=== PATIENT | female | born 1975 | race Caucasian/White ===

== ENCOUNTER 2017-01-27 18:36 | Emergency (ER) | payer BC ==
[2017-01-27 18:44] VITALS: BP 140/73; PULSE 93; RESP 16; TEMP 98.4; O2SAT 95
--- NOTE | 2017-01-27 20:02 | UCPHY ---
H & P Time Seen by Provider: 01/27/17 19:50 Patient Type: Established HPI/ROS: This patient complains of right ear pain of [id number] intensity associated with nasal congestion for the past several days. She feels the ear pain worsened slightly today which prompted her visit. She reports seasonal allergies associated with her symptoms. She she takes loratadine and Sudafed but has noticed an improvement. She notes no other exacerbating or alleviating factors. ROS: No fevers chills or other constitutional symptoms. HEENT: No purulent nasal discharge. She reports no significant hearing change. No drainage from the ear. No trauma to the ear. 5 point ROS is otherwise negative. Past Medical/Surgical History: Seasonal allergies Hypothyroidism Smoking Status: Never smoked Physical Exam: Physical Exam Vital signs are normal. General: No acute distress HEENT: Nose: Clear discharge bilaterally. No sinus tenderness to percussion. Ears: Right external canal is clear right TM reveals clear effusion. No erythema to the TM. Left external canal and TM are clear Oropharynx: No erythema or exudates. No dysphonia. No drooling or stridor. Eyes: Pupils equal and react to light. Extraocular motions are intact. Neck: Supple Lungs: Clear to auscultation bilaterally with no rales, rhonchi or wheeze. No respiratory distress. Cardiac: Regular rate and rhythm with no murmur gallop or rub Skin: No rash or pallor. Neuro: Alert with no focal deficits noted. Constitutional: Initial Vital Signs Temperature (C) 36.9 C 01/27/17 18:41 Heart Rate 93 01/27/17 18:41 Respiratory Rate 16 01/27/17 18:41 Blood Pressure 140/73 H 01/27/17 18:41 O2 Sat (%) 95 01/27/17 18:41 O2 Delivery Mode Room Air Allergies/Adverse Reactions: No Known Allergies Allergy (Unverified 01/10/15 21:50) Home Medications: Medication Instructions Recorded Albuterol [Proventil Inhaler HFA 01/10/15 (RX)] Loratadine/Pseudoephedrine 01/10/15 [Claritin-D 12 Hour Tablet] Thyroid,Pork [ARMOUR THYROID] 01/10/15 Fluticasone Nasal [Flonase Nasal 2 sprays NASAL DAILY #1 mdi 04/09/17 [place] (RX)] Medical Decision Making ED Course/Re-evaluation: Findings are consistent with seasonal allergies with serous otitis. I counseled the patient regarding this. Departure - Departure Disposition: Home, Routine, Self-Care Clinical Impression: Serous otitis media Qualifiers: Laterality: right Chronicity: acute Recurrence: not specified as recurrent Qualified Code(s): H65.01 - Acute serous otitis media, right ear Condition: Good Instructions: Serous Otitis Media (ED) Additional Instructions: Diagnosis: Serous otitis Plan: Humidifier Guaifenesin Flonase steroid nasal spray Afrin in addition if needed for couple days then stop the Afrin but continue Flonase for 10-14 days. Ibuprofen or Aleve anti-inflammatory in addition. Return for any significant worsening despite the treatment plan. Referrals: Lorenza Mane [Primary Care Provider] - As per Instructions Prescriptions: Fluticasone Nasal [Flonase Nasal [place] (RX)] 2 sprays NASAL DAILY #1 mdi - PQRS PQRS Measurement: NA
== END 2017-01-27 20:05 | disposition home or self-care (01) ==
LOC: CED 18:36
DX: H65.01 Acute serous otitis media, right ear (principal)
CPT/HCPCS: 99214-PO; G0463-PO

== ENCOUNTER → 2017-02-11 | Emergency (ER) | payer BC ==
[2017-02-11 20:06] VITALS: BP 153/76; PULSE 94; RESP 18; TEMP 100.2; O2SAT 98
--- NOTE | 2017-02-11 20:32 | UCPHY ---
H & P Patient Type: Established Chief Complaint Nursing Narrative: Cat scratched on nose. Time Seen by Provider: 02/11/17 20:22 HPI/ROS: CHIEF COMPLAINT: Cat scratch HISTORY OF PRESENT ILLNESS: Patient is a 41-year-old female who comes to the Urgent Care complaining of an abrasion to her nose. She states that her cat scratched her this afternoon. On her right nostril she has an abrasion on the margin medial and laterally. No bleeding. No through and through injury. She denies other injuries. No eye injury. REVIEW OF SYSTEMS: Constitutional: denies: chills, fever, recent illness, recent injury EENTM: See HPI Respiratory: denies: cough, shortness of breath Cardiac: denies: chest pain, irregular heart rate, lightheadedness, palpitations Gastrointestinal/Abdominal: denies: abdominal pain, diarrhea, nausea, vomiting, blood streaked stools Genitourinary: denies: dysuria, frequency, hematuria, pain Musculoskeletal: denies: joint pain, muscle pain Skin: denies: lesions, rash, jaundice, bruising Neurological: denies: headache, numbness, paresthesia, tingling, dizziness, weakness Hematologic/Lymphatic: denies: blood clots, easy bleeding, easy bruising Immunologic/allergic: denies: HIV/AIDS, transplant EXAM: GENERAL: Well-appearing, well-nourished and in no acute distress. HEAD: Atraumatic, normocephalic. EYES: Pupils equal round and reactive to light, extraocular movements intact, sclera anicteric, conjunctiva are normal. ENT: TMs normal, abrasion as described above , oropharynx clear without exudates. Moist mucous membranes. NECK: Normal range of motion, supple without lymphadenopathy or JVD. LUNGS: Breath sounds clear to auscultation bilaterally and equal. No wheezes rales or rhonchi. HEART: Regular rate and rhythm without murmurs, rubs or gallops. ABDOMEN: Soft, nontender, normoactive bowel sounds. No guarding, no rebound. No masses appreciated. BACK: No CVA tenderness, no spinal tenderness, step-offs or deformities EXTREMITIES: Normal range of motion, no pitting or edema. No clubbing or cyanosis. NEUROLOGICAL: Cranial nerves II through XII grossly intact. Normal speech, normal gait. 5/5 strength, normal movement in all extremities, normal sensation PSYCH: Normal mood, normal affect. SKIN: Warm, dry, normal turgor, no visible rashes or lesions. Source: Patient Exam Limitations: No limitations - Personal History LMP (Females 10-55): 8-14 Days Ago Current Tetanus/Diphtheria Vaccine: Yes Current Tetanus Diphtheria and Acellular Pertussis (TDAP): Yes Tetanus Vaccine Date: 2012 - Medical/Surgical History Hx Asthma: Yes Hx Chronic Respiratory Disease: Yes Hx Diabetes: No Hx Cardiac Disease: No Hx Renal Disease: No Hx Cirrhosis: No Hx Alcoholism: No Hx HIV/AIDS: No Hx Splenectomy or Spleen Trauma: No Other PMH: hypothyroid, exercise induced asthma, LASHANDA-CPAP - Family History Significant Family History: No pertinent family hx - Social History Smoking Status: Never smoked Alcohol Use: None Drug Use: None Constitutional: Initial Vital Signs Temperature (C) 37.9 C 02/11/17 20:02 Heart Rate 94 02/11/17 20:02 Respiratory Rate 18 02/11/17 20:02 Blood Pressure 153/76 H 02/11/17 20:02 O2 Sat (%) 98 02/11/17 20:02 O2 Delivery Mode Room Air Allergies/Adverse Reactions: No Known Allergies Allergy (Verified 02/11/17 20:06) Home Medications: Medication Instructions Recorded Albuterol [Proventil Inhaler HFA 01/10/15 (RX)] Loratadine/Pseudoephedrine 01/10/15 [Claritin-D 12 Hour Tablet] Thyroid,Pork [ARMOUR THYROID] 01/10/15 Fluticasone Nasal [Flonase Nasal 2 sprays NASAL DAILY #1 mdi 01/27/17 [place] (RX)] Medical Decision Making ED Course/Re-evaluation: We discussed treatment of cat scratches. I will treat with bacitracin. No sign of infection at this time. We discussed fact that antibiotics may select for a worsened infection and therefore will hold at this time. She understands and agrees with this plan. She will take ibuprofen for pain. She declines further workup or testing at this time. At triage she was 37.9 but in the room I measured her temperature is 37.1 degrees. Differential Diagnosis: Partial list of the Differential diagnosis considered include but were not limited to; cat scratch, cellulitis, foreign body and although unlikely based on the history and physical exam, I also considered sinusitis, epistaxis, hematoma. I discussed these differential diagnoses and the plan with the patient as well as the usual and expected course. The patient understands that the diagnosis is provisional and that in medicine we are not always correct and that further workup is often warranted. Usual and customary warnings were given. All of the patient's questions were answered. The patient was instructed to return to the emergency department should the symptoms at all worsen or return, otherwise to followup with the physician as we discussed. Departure - Departure Disposition: Home, Routine, Self-Care Clinical Impression: Cat scratch Condition: Fair Instructions: Abrasion (ED) Referrals: Analia Herring MD [[facility] Primary Care Provider] - As per Instructions - PQRS PQRS Measurement: Not applicable
== END | disposition home or self-care (01) ==
LOC: CED 19:55
DX: S00.31XA Abrasion of nose, initial encounter (principal); W55.03XA Scratched by cat, initial encounter
CPT/HCPCS: G0463-PO